=== PATIENT | male | born 1980 ===

== ENCOUNTER 2017-07-04 09:50 | Emergency (ER) | payer BC ==
[~2017-07-04] VITALS: Ht 188 cm; Wt 132.7 kg
[~2017-07-04 09:50] MED LIST: ALDACTONE 25MG25 M1 PO; PROCARDIA XL 6060 MG PO; TOPROL XL100 MG PO
[2017-07-04 12:24] VITALS: BP 192/118; PULSE 81; TEMP 97.9
== END 2017-07-04 12:25 | disposition home or self-care (01) ==
LOC: COL.ER 09:50
DX: I47.1 Supraventricular tachycardia (principal); I10 Essential (primary) hypertension

== ENCOUNTER 2017-07-15 23:11 | Emergency (ER) | payer BC ==
[~2017-07-15] VITALS: Ht 188 cm; Wt 131.8 kg
[2017-07-15 23:14] VITALS: TEMP 98.3
[2017-07-15] MEDS ORDERED: NORVASC 10MG10 MG PO (23:38)
[2017-07-15 23:53] VITALS: BP 157/115; PULSE 80
[2017-07-16] MEDS ORDERED: PRINIVIL40 MG PO (00:14)
== END 2017-07-15 23:53 | disposition home or self-care (01) ==
LOC: COL.ER 23:11
DX: I47.1 Supraventricular tachycardia (principal); I10 Essential (primary) hypertension
CPT/HCPCS: J0153

== ENCOUNTER 2017-12-03 13:03 | Emergency (ER) | payer MEDICAID ==
[~2017-12-03] VITALS: Ht 188 cm; Wt 127.3 kg
[~2017-12-03 13:03] MED LIST changes: +NORVASC 10MG10 MG PO; +PRINIVIL40 MG PO
[2017-12-03 13:06] VITALS: TEMP 97.6
[2017-12-03] MEDS ORDERED: RT ADVAIR 228 DISKUS IH (13:24)
[2017-12-03] MEDS ORDERED: ALBUTEROL0.83 MG/ML IH (13:24)
[2017-12-03] MEDS ORDERED: PROAIR HFA0.09 MG/AC IH (13:24)
[2017-12-03 14:50] VITALS: BP 169/126
[2017-12-03 15:00] VITALS: PULSE 68
== END 2017-12-03 15:05 | disposition home or self-care (01) ==
LOC: COL.ER 13:03
DX: I47.1 Supraventricular tachycardia (principal); I10 Essential (primary) hypertension; Z79.51 Long term (current) use of inhaled steroids
CPT/HCPCS: J0153; J7030

== ENCOUNTER 2018-01-11 21:41 | Inpatient (IN) | payer OTHER ==
[~2018-01-11] VITALS: Ht 188 cm; Wt 125.7 kg
[~2018-01-11 21:41] MED LIST changes: +ALBUTEROL0.83 MG/ML IH; +PROAIR HFA0.09 MG/AC IH; +RT ADVAIR 228 DISKUS IH
[2018-01-11 22:19] LABS: BASO # 0.1 (0.0-0.2); BASO % 0.8 % (0.0-2.0); EOS # 0.8 (0.0-0.7); EOS % 6.9 % (0-4.0); GRAN # 7.5 (1.4-6.5); GRAN % 66.2 % (42.2-75.2); HEMATOCRIT 44.3 % (42.0-52.0); HEMOGLOBIN 14.5 g/dl (13.5-18.0); LYMPH # 1.8 (1.2-3.4); LYMPH % 16.1 % (20.0-51.0); MEAN CELL VOLUME 84 fl (80.0-100.0); MEAN CORPUSCULAR HEMOGLOBIN 27 pg (27.0-31.0); MEAN CORPUSCULAR HGB CONC 33 g/dl (33.0-37.0); MEAN PLATELET VOLUME 9.3 fl (7.4-10.4); MONO # 1.1 (0.1-0.6); MONO % 9.6 % (1.7-9.3); PLATELET COUNT 299 K/mm3 (130-400); REDCELL DISTRIBUTION WIDTH-CV 14.6 % (11.5-14.5)
[2018-01-11 22:26] LABS: INR 1.1 (0.8-3.0); PROTHROMBIN TIME 12.5 SECONDS (9.7-12.8)
[2018-01-11 22:29] LABS: PARTIAL THROMBOPLASTIN TIME 33.3 SECONDS (26.0-37.0)
[2018-01-11 22:30] LABS: BILIRUBIN,TOTAL 0.9 mg/dL (0.0-1.0); CALCIUM 8.8 mg/dL (8.4-10.2); CREATININE, serum 1.47 mg/dL (0.66-1.25); POTASSIUM 3.8 mmol/L (3.4-5.0); TOTAL PROTEIN 7.5 gm/dL (6.4-8.2)
[2018-01-11 22:42] LABS: TROPONIN-I 0.03 ng/mL (0.000-0.034)
[2018-01-12] VITALS: BP 140/81; PULSE 74; TEMP 98.2
[2018-01-12] MEDS ORDERED: PROCARDIA XL 6060 MG PO (00:04)
[2018-01-12 01:03] LABS: PH 7 (5-8); SQUAMOUS EPITHELIAL None Seen /hpf; URINE APPEARANCE Clear; URINE BACTERIA None Seen /hpf; URINE BILIRUBIN Negative (NEGATIVE); URINE BLOOD 1+ (NEGATIVE); URINE COLOR Straw; URINE GLUCOSE Negative (NEGATIVE); URINE KETONE Negative (NEGATIVE); URINE LEUKOCYTE ESTERASE Negative (NEGATIVE); URINE NITRATE Negative (NEGATIVE); URINE PROTEIN(semi-quant) Negative (NEGATIVE); URINE RBC 0-2 /hpf; URINE UROBILINOGEN Negative (NEGATIVE)
[2018-01-12 01:18] LABS: COLLECTION METHOD CLEAN CATCH
[2018-01-12 02:27] VITALS: BP 164/97; PULSE 90; TEMP 98.2
[2018-01-12 04:00] VITALS: BP 124/84; PULSE 70; TEMP 98.2
[2018-01-12 04:12] LABS: BASO # 0.1 (0.0-0.2); EOS # 0.8 (0.0-0.7); EOS % 7.8 % (0-4.0); GRAN # 6.3 (1.4-6.5); GRAN % 62.8 % (42.2-75.2); HEMATOCRIT 45.2 % (42.0-52.0); HEMOGLOBIN 14.6 g/dl (13.5-18.0); LYMPH # 1.9 (1.2-3.4); LYMPH % 18.7 % (20.0-51.0); MEAN CELL VOLUME 84 fl (80.0-100.0); MEAN CORPUSCULAR HEMOGLOBIN 27 pg (27.0-31.0); MEAN CORPUSCULAR HGB CONC 32 g/dl (33.0-37.0); MEAN PLATELET VOLUME 9.3 fl (7.4-10.4); MONO # 0.9 (0.1-0.6); MONO % 9.3 % (1.7-9.3); PLATELET COUNT 282 K/mm3 (130-400); RED BLOOD COUNT 5.38 M/mm3 (4.20-5.60); REDCELL DISTRIBUTION WIDTH-CV 14.7 % (11.5-14.5)
[2018-01-12 04:22] LABS: CALCIUM 8.5 mg/dL (8.4-10.2); CREATININE, serum 1.33 mg/dL (0.66-1.25); POTASSIUM 3.7 mmol/L (3.4-5.0)
[2018-01-12 04:33] LABS: TROPONIN-I 0.021 ng/mL (0.000-0.034)
== END 2018-01-12 05:05 | disposition left against medical advice (07) | DRG 305 ==
LOC: COL.ER 21:41 → ICU 23:05
PROVIDERS: Emergency Medicine; Nurse Practitioner Family
DX: I16.0 Hypertensive urgency (principal); N17.9 Acute kidney failure, unspecified; I12.9 Hypertensive chronic kidney disease with stage 1 through stage 4 chronic kidney disease, or unspecified chronic kidney disease; N18.9 Chronic kidney disease, unspecified; I48.91 Unspecified atrial fibrillation; I49.3 Ventricular premature depolarization; J45.909 Unspecified asthma, uncomplicated; F17.210 Nicotine dependence, cigarettes, uncomplicated
CPT/HCPCS: J2060; J7030; J7050

== ENCOUNTER 2020-07-26 06:59 | Emergency (ER) | payer SELFPAY ==
[~2020-07-26] VITALS: Ht 188 cm; Wt 121.4 kg
[2020-07-26 07:01] VITALS: TEMP 97
[2020-07-26 07:24] LABS: BASO # 0.1 (0.0-0.2); BASO % 0.9 % (0.0-2.0); EOS # 0.4 (0.0-0.7); EOS % 3.7 % (0-4.0); GRAN % 66.6 % (42.2-75.2); HEMOGLOBIN 16.1 g/dl (13.5-18.0); LYMPH # 1.8 (1.2-3.4); LYMPH % 17.3 % (20.0-51.0); MEAN CELL VOLUME 86 fl (80.0-100.0); MEAN CORPUSCULAR HEMOGLOBIN 29 pg (27.0-31.0); MEAN CORPUSCULAR HGB CONC 34 g/dl (33.0-37.0); MEAN PLATELET VOLUME 8.9 fl (7.4-10.4); MONO # 1.2 (0.1-0.6); MONO % 11.1 % (1.7-9.3); PLATELET COUNT 393 K/mm3 (130-400); REDCELL DISTRIBUTION WIDTH-CV 16.4 % (11.5-14.5)
[2020-07-26] MEDS ORDERED: PRINIVIL40 MG PO (07:38)
[2020-07-26 07:39] LABS: ALANINE AMINOTRANSFERASE 21 U/L (4-49); ALBUMIN 4.3 gm/dL (3.5-5.0); ALKALINE PHOSPHATASE 80 U/L (50-136); ANION GAP 10 mmol/L (7-16); AST,SGOT 30 U/L (15-37); BILIRUBIN,TOTAL 0.6 mg/dL (0.0-1.0); BLOOD UREA NITROGEN 15 mg/dL (9-20); CALCIUM 9.4 mg/dL (8.4-10.2); CARBON DIOXIDE 23 mmol/L (22-30); CHLORIDE 106 mmol/L (98-107); GLUCOSE 156 mg/dL (74-106); POTASSIUM 4.1 mmol/L (3.4-5.0); SODIUM 139 mmol/L (137-145); TOTAL PROTEIN 7.9 gm/dL (6.4-8.2)
[2020-07-26] MEDS ORDERED: IBU800 M1 PO (07:39)
[2020-07-26] MEDS ORDERED: ASPIRIN 81M81 MG/TA2 PO (07:39)
[2020-07-26] MEDS ORDERED: CELEXA40 MG PO (07:40)
[2020-07-26] MEDS ORDERED: AMBIEN 10MG10 MG PO (07:40)
[2020-07-26 07:59] LABS: TROPONIN-I < 0.012 ng/mL (0.000-0.035)
[2020-07-26] MEDS ORDERED: ELIQUIS 5MG PO (09:48)
[2020-07-26 10:10] VITALS: BP 161/114; PULSE 63
== END 2020-07-26 10:10 | disposition home or self-care (01) ==
LOC: COL.ER 06:59
PROVIDERS: Emergency Medicine
DX: I48.91 Unspecified atrial fibrillation (principal); I10 Essential (primary) hypertension; J45.909 Unspecified asthma, uncomplicated; I25.10 Atherosclerotic heart disease of native coronary artery without angina pectoris; F17.210 Nicotine dependence, cigarettes, uncomplicated; E66.9 Obesity, unspecified; Z95.9 Presence of cardiac and vascular implant and graft, unspecified; Z88.2 Allergy status to sulfonamides; Z88.1 Allergy status to other antibiotic agents; Z88.8 Allergy status to other drugs, medicaments and biological substances; Z79.82 Long term (current) use of aspirin

== ENCOUNTER → 2021-02-05 | Emergency (ER) | payer OTHER ==
[~2021-02-05] VITALS: Ht 188 cm; Wt 122.7 kg
[~2021-02-05] MED LIST changes: +AMBIEN 10MG10 MG PO; +ASPIRIN 81M81 MG/TA2 PO; +CELEXA40 MG PO; +ELIQUIS 5MG PO; +IBU800 M1 PO
[2021-02-05 01:12] VITALS: BP 193/113; PULSE 66; TEMP 98
[2021-02-05 02:03] LABS: BASO # 0.1 (0.0-0.2); BASO % 0.8 % (0.0-2.0); EOS # 0.4 (0.0-0.7); EOS % 3.5 % (0-4.0); GRAN # 8.1 (1.4-6.5); GRAN % 73.8 % (42.2-75.2); HEMATOCRIT 43.4 % (42.0-52.0); HEMOGLOBIN 14.6 g/dl (13.5-18.0); LYMPH # 1.5 (1.2-3.4); LYMPH % 13.9 % (20.0-51.0); MEAN CELL VOLUME 86 fl (80.0-100.0); MEAN CORPUSCULAR HEMOGLOBIN 29 pg (27.0-31.0); MEAN CORPUSCULAR HGB CONC 34 g/dl (33.0-37.0); MEAN PLATELET VOLUME 8.7 fl (7.4-10.4); MONO # 0.9 (0.1-0.6); MONO % 7.8 % (1.7-9.3); PLATELET COUNT 347 K/mm3 (130-400); RED BLOOD COUNT 5.07 M/mm3 (4.20-5.60); REDCELL DISTRIBUTION WIDTH-CV 15.4 % (11.5-14.5)
[2021-02-05 02:18] LABS: ALANINE AMINOTRANSFERASE 35 U/L (4-49); ALBUMIN 4.4 gm/dL (3.5-5.0); ALKALINE PHOSPHATASE 66 U/L (50-136); ANION GAP 10 mmol/L (7-16); AST,SGOT 40 U/L (15-37); BILIRUBIN,TOTAL 0.4 mg/dL (0.0-1.0); BLOOD UREA NITROGEN 11 mg/dL (9-20); CALCIUM 8.6 mg/dL (8.4-10.2); CARBON DIOXIDE 26 mmol/L (22-30); CHLORIDE 103 mmol/L (98-107); CREATININE, serum 1.23 (0.66-1.25); GLUCOSE 115 mg/dL (74-106); LIPASE 138 U/L (23-300); POTASSIUM 3.8 mmol/L (3.4-5.0); SODIUM 139 mmol/L (137-145); TOTAL PROTEIN 8.3 gm/dL (6.4-8.2)
[2021-02-05 02:31] LABS: TROPONIN-I < 0.012 ng/mL (0.000-0.035)
== END ==
LOC: COL.ER 01:05
PROVIDERS: Student in an Organized Health Care Education/Training Program
DX: R10.13 Epigastric pain (principal); I10 Essential (primary) hypertension; I48.91 Unspecified atrial fibrillation; F17.210 Nicotine dependence, cigarettes, uncomplicated; Z95.1 Presence of aortocoronary bypass graft; Z79.01 Long term (current) use of anticoagulants; Z79.82 Long term (current) use of aspirin; Z79.899 Other long term (current) drug therapy
CPT/HCPCS: J2270; J2405; J7030